=== PATIENT | male | born 1950 | race Caucasian/White ===

== ENCOUNTER → 2016-12-13 | Outpatient (CLI) | payer MEDICARE | LOC: CT 08:00 | DX: R31.9 Hematuria, unspecified (principal); R93.5 Abnormal findings on diagnostic imaging of other abdominal regions, including retroperitoneum ==

== ENCOUNTER → 2017-01-13 | Outpatient (CLI) | payer OTHER | LOC: CT 10:29 | DX: N28.89 Other specified disorders of kidney and ureter (principal); R16.1 Splenomegaly, not elsewhere classified; N28.1 Cyst of kidney, acquired | CPT/HCPCS: J7050; Q9962 ==

== ENCOUNTER → 2022-04-01 | Outpatient (CLI) | payer OTHER ==
[~2022-04-01] MED LIST: ASPIRIN EC81 MG PO; GABAPENTIN100 MG PO; HYDRALAZINE HC100 MG PO; HYDROCHLOROTHIA25 MG PO; LANTUS INS100 UTS/M2 SQ; LEVAQUIN500 MG PO; LIPITOR40 MG PO; LOPRESSOR100 MG PO; LORTAB 5-325 M1 EACH PO; NORVASC10 MG PO; NOVOLOG100 UNIT/1 SQ; PRINIVIL20 MG PO; SYNTHROID75 MCG PO; TYLENOL W/CODEIN1 E1 PO; UNASYN 3 GM VIAL3 GM IV; ZYLOPRIM 100 M100 MG PO
== END ==
LOC: HEART 5 07:48
DX: I20.9 Angina pectoris, unspecified (principal); I07.1 Rheumatic tricuspid insufficiency; I27.20 Pulmonary hypertension, unspecified; Z95.0 Presence of cardiac pacemaker
CPT/HCPCS: 78452; 93306; A9502; J2785